=== PATIENT | female | born 1945 | race Caucasian/White ===

== ENCOUNTER → 2017-02-28 | Outpatient (CLI) | payer MEDICARE, BC ==
[2017-02-28 15:04] LABS: Blood Urea Nitrogen 20 mg/dL (7-17)
--- NOTE | 2017-02-28 16:00 | CT ---
EXAMINATION TYPE: CT abdomen pelvis w con DATE OF EXAM: 02/28/2017 HISTORY: Patient complains of bulge to rectum area and things not passing through normally. CT DLP: 523.60mGycm Automated Exposure Control for Dose Reduction was Utilized. CONTRAST: CT scan of the abdomen and pelvis is performed with IV Contrast, patient injected with 100 mL of Omni paque 300. COMPARISON: None. FINDINGS: LUNG BASES: No significant abnormality is appreciated. LIVER/GB: Cholecystectomy clips are present. PANCREAS: There is some fat replaced atrophy of the pancreas. SPLEEN: No significant abnormality is seen. ADRENALS: No significant abnormality is seen. KIDNEYS: There is symmetric cortical medullary uptake and excretion. BOWEL: The oral contrast reaches level of the proximal ileal bowel loops. There is contrast slightly dilated stomach. There is no suspicious small or large bowel dilatation. Moderate fecal material is f airly prominent throughout the colon. UTERUS/ADNEXA: Uterus is surgically absent or markedly atrophic. Former is favored. There are some sc attered left-sided pelvic phleboliths. LYMPH NODES: No greater than 1cm abdominal or pelvic lymph nodes are appreciated. OSSEOUS STRUCTURES: There is levoconvex scoliosis centered mid to lower lumbar spine. There is modera te to advanced disc space narrowing with vacuum disc phenomenon and endplate sclerosis left L2-L3 and right L4-L5 levels. There is facet arthropathy mid to lower lumbar levels. OTHER: Coils ventral wall hernia repair surgery overlying lower anterior abdominal wall. Some displac ed clips into pelvis are noted. IMPRESSION: No suspicious mass or finding is seen to account for patient's symptoms. No significant c olonic diverticulosis or CT evidence for acute diverticulitis. Overall nonobstructive bowel gas patte rn. Mild diffuse colonic fecal stasis or constipation is felt present. Dynamic CT or MRI can be perfo rmed to assess for prolapse if this is clinical concern.
== END | disposition home or self-care (01) ==
LOC: RADCTMAIN 13:54
PROVIDERS: ATTEND Surgery Plastic and Reconstructive Surgery
DX: K57.92 Diverticulitis of intestine, part unspecified, without perforation or abscess without bleeding (principal)
CPT/HCPCS: 82565; 84520; 74177; 36415; Q9967

== ENCOUNTER → 2017-03-05 | Day surgery (SDC) | payer MEDICARE, BC ==
[2017-03-03 16:18] VITALS: BMI 25.4
[~2017-03-05] MED LIST: LACTATED RINGERS 1,000 ML IV SCH; LIDOCAINE 1% 20 ML VIAL (10MG/ML) FOR IV START INTRADERMA ONE; LIDOCAINE 1% INJ 10MG/ML (20 ML MDV) ONE; PROPOFOL 10 MG/ML 20 ML VIAL IV ONE
[2017-03-05 10:27] VITALS: TEMP 98.1
--- NOTE | 2017-03-05 10:43 | P.GSHP ---
History of Present Illness H&P Date: 03/05/17 CHIEF COMPLAINT: GERD and colon screen HISTORY OF PRESENT ILLNESS: The patient is a 71-year-old female who presents with gastroesophageal reflux disease and need for colon screen. Upper and lower endoscopy were offered for further evaluation and management. PAST MEDICAL HISTORY: Please see list. PAST SURGICAL HISTORY: Please see list. MEDICATIONS: Please see list. ALLERGIES: Please see list. SOCIAL HISTORY: No illicit drug use FAMILY HISTORY: No reports of Crohn disease or ulcerative colitis. REVIEW OF ORGAN SYSTEMS: CONSTITUTIONAL: No reports of fevers or chills. GI: Denies any blood in stools or constipation. PHYSICAL EXAM: VITAL SIGNS: Stable GENERAL: Well-developed pleasant in no acute distress. HEENT: No scleral icterus. Extraocular movements grossly intact. Moist buccal mucosa. NECK: Supple without lymphadenopathy. CHEST: Unlabored respirations. Equal bilateral excursions. CARDIOVASCULAR: Regular rate and rhythm. Distal 2+ pulses. ABDOMEN: Soft, nondistended. MUSCULOSKELETAL: No clubbing, cyanosis, or edema. ASSESSMENT: 1. Gastroesophageal reflux disease 2. Colon screen. PLAN: 1. Recommend proceeding with an upper and lower endoscopy Past Medical History Past Medical History: Chest Pain / Angina, CVA/TIA, GERD/Reflux, Hyperlipidemia , Myocardial Infarction ([place]), Neurologic Disorder, Thyroid Disorder Additional Past Medical History / Comment(s): raynauds, fibromyalgia, "b/p runs low", pain-cervical area and lower back, ? CVA -had blood clot to eye (in her 30's) which resolved., Hiatal hernia., Hypothyroid,. ADRENAL FATIGUE., Having difficulty passing stool. Last Myocardial Infarction Date:: 11/2013 History of Any Multi-Drug Resistant Organisms: None Reported Past Surgical History: Cholecystectomy, Heart Catheterization With Stent, Hysterectomy Additional Past Surgical History / Comment(s): CYSTOCELE, CATARACTS, GROWTH ON HAND, GODFREY CARPAL TUNNEL, GODFREY ROTATOR CUFF., THUMB SURGERY. Past Anesthesia/Blood Transfusion Reactions: Postoperative Nausea & Vomiting ( PONV) Additional Past Anesthesia/Blood Transfusion Reaction / Comment(s): PONV X1 Date of Last Stent Placement:: 11/2013 Past Psychological History: No Psychological Hx Reported Smoking Status: Never smoker Past Alcohol Use History: None Reported Past Drug Use History: None Reported - Past Family History Mother Family Medical History: CVA/TIA Medications and Allergies Home Medications Medication Instructions Recorded Confirmed Type Adrenogen 30 mg PO BID 01/12/15 03/05/17 History Clopidogrel [Plavix] 75 mg PO DAILY 01/12/15 03/05/17 History [place]-3 Fatty Acids/Fish Oil [Fish 1,000 mg PO DAILY 01/12/15 03/05/17 History Oil 1,000 mg Softgel] Pregnenolone 50 mg PO DAILY 01/12/15 03/05/17 History Ranitidine HCl [Zantac] 150 mg PO DAILY PRN 01/12/15 03/05/17 History Acetaminophen [Tylenol Arthritis] 650 mg PO HS PRN 03/03/17 03/05/17 History Cbd Oil (Cannibus) 1 applicate TOPICAL DAILY PRN 03/03/17 03/05/17 History Cholecalciferol [Vitamin D3] 5,000 unit PO DAILY 03/03/17 03/05/17 History DULoxetine HCL [Cymbalta] 30 mg PO BID 03/03/17 03/05/17 History Essential Oils Tablet 1 tab PO DAILY 03/03/17 03/05/17 History Estradiol Cream [Estrace Cream 1 gm VAGINAL Q3D 03/03/17 03/05/17 History 0.01%] Estradiol [Estradiol 0.1 MG Patch] 1 patch TRANSDERM Q14D 03/03/17 03/05/17 History Magnesium 300 mg PO TID 03/03/17 03/05/17 History Progesterone, Micronized 120 mg PO DAILY 03/03/17 03/05/17 History [Progesterone] Thyroid,Pork [[place] Thyroid] 90 mg PO DAILY 03/03/17 03/05/17 History Vitamin B-12 Injection 1 dose SQ DIRECTED 03/03/17 03/05/17 History Allergies Allergy/AdvReac Type Severity Reaction Status Date / Time adhesive AdvReac skin Verified 03/05/17 10:05 irritation Surgical - Exam Vital Signs Temp Pulse Resp BP Pulse Ox 98.1 F 65 16 124/66 97 03/05/17 10:26 03/05/17 10:26 03/05/17 10:26 03/05/17 10:26 03/05/17 10:26
--- NOTE | 2017-03-05 11:15 | P.PCN ---
Date of Procedure: 03/05/17 Description of Procedure: VPREOPERATIVE DIAGNOSIS: Gastroesophageal reflux disease. Epigastric abdominal pain. POSTOPERATIVE DIAGNOSIS: Gastroesophageal reflux disease. Epigastric abdominal pain. Gastric ulcer distal to GE junction. OPERATION: Esophagogastroduodenoscopy with cold forceps biopsies along distal to GE junction SURGEON: Rochelle Cruz MD ANESTHESIA: MAC. INDICATIONS: The patient is a 71-year-old female who presents with a history of reflux disease. Benefits and risks of the procedure were described. Informed consent was obtained. DESCRIPTION: The patient was brought into the endoscopy suite and laid in the left lateral decubitus position. An Olympus gastroscope was passed along the posterior oropharynx down to the distal esophagus where the squamocolumnar junction was encountered at 35 cm from the incisors. The stomach was entered and no bile reflux was found. Additional findings are listed below. The first through third portion of the duodenum was examined and unremarkable. Retroflexion of the scope confirmed Hill grade 3 lower esophageal valve. Erosive ulcers were identified distal to GE junction and biopsied. The squamocolumnar junction demostrated early LA grade A erosive esophagitis. The stomach was desufflated. The patient tolerated the procedure well. FINDINGS: Squamocolumnar junction 35 cm from the incisors. Diaphragmatic hiatus at 35 cm. Hill grade 3 lower esophageal valve. LA grade A erosive esophagitis. No active duodenitis. Gastric ulcers distal to GE junction. RECOMMENDATIONS: Further recommendations pending results of pathology report. Upper endoscopy as needed.
--- NOTE | 2017-03-05 11:34 | P.PCN ---
Date of Procedure: 03/05/17 Description of Procedure: PREOPERATIVE DIAGNOSIS: Colonoscopy screening. POSTOPERATIVE DIAGNOSIS: Colonoscopy screening. External hemorrhoids. OPERATION: Colonoscopy to the sigmoid colon. SURGEON: Rochelle Cruz MD. ANESTHESIA: MAC. INDICATIONS: The patient is a 71-year-old female who presents for colonoscopy screening. Her last colonoscopy was more than 5 years ago. Benefits and risks were described and informed consent was obtained. DESCRIPTION OF PROCEDURE: The patient had undergone Gatorade, MiraLAX and Dulcolax prep. She had been brought into the operating room and laid in the left lateral decubitus position. After adequate intravenous sedation, the rectum was examined with 2% lidocaine jelly. External hemorrhoids were encountered. The rectal tone was loose. No lesions were palpated in the rectal vault. An Olympus colonoscope was advanced along the rectum to a very tortuous sigmoid colon. The scope was then exchanged for a pediatric colonoscope. Despite multiple maneuvers, the sigmoid colon had severe tortuosity preventing further advancement of scope. The scope was passed to 30 cm from the anal verge. No evidence of polyps were identified. As the patient posed high risk for perforation with persistence of the procedure, the procedure was discontinued. The colon was desufflated. The patient had tolerated the procedure well. Withdrawal time was over 6 minutes. FINDINGS: Tortuous sigmoid colon with stricture preventing further advancement of the scope. External prolapsed hemorrhoids. Scope advanced to sigmoid colon at 30 cm. No arteriovenous malformations. No adenomatous polyps. No focal colitis. RECOMMENDATIONS: Completion of colonoscopy evaluation with barium enema. Plan - Discharge Summary New Discharge Prescriptions: No [place]-3 Fatty Acids/Fish Oil [Fish Oil 1,000 mg Softgel] 1,000 mg PO DAILY Ranitidine HCl [Zantac] 150 mg PO DAILY PRN PRN Reason: Heartburn Clopidogrel [Plavix] 75 mg PO DAILY Pregnenolone 50 mg PO DAILY Adrenogen 30 mg PO BID Progesterone, Micronized [Progesterone] 120 mg PO DAILY Thyroid,Pork [[place] Thyroid] 90 mg PO DAILY Magnesium 300 mg PO TID DULoxetine HCL [Cymbalta] 30 mg PO BID Estradiol Cream [Estrace Cream 0.01%] 1 gm VAGINAL Q3D Estradiol [Estradiol 0.1 MG Patch] 1 patch TRANSDERM Q14D Acetaminophen [Tylenol Arthritis] 650 mg PO HS PRN PRN Reason: Pain Cholecalciferol [Vitamin D3] 5,000 unit PO DAILY Vitamin B-12 Injection 1 dose SQ DIRECTED Essential Oils Tablet 1 tab PO DAILY Cbd Oil (Cannibus) 1 applicate TOPICAL DAILY PRN PRN Reason: Pain Discharge Medication List Adrenogen 30 mg PO BID 01/12/15 [History] Clopidogrel [Plavix] 75 mg PO DAILY 01/12/15 [History] [place]-3 Fatty Acids/Fish Oil [Fish Oil 1,000 mg Softgel] 1,000 mg PO DAILY 01/12 [History] Pregnenolone 50 mg PO DAILY 01/12/15 [History] Ranitidine HCl [Zantac] 150 mg PO DAILY PRN 01/12/15 [History] Acetaminophen [Tylenol Arthritis] 650 mg PO HS PRN 03/03/17 [History] Cbd Oil (Cannibus) 1 applicate TOPICAL DAILY PRN 03/03/17 [History] Cholecalciferol [Vitamin D3] 5,000 unit PO DAILY 03/03/17 [History] DULoxetine HCL [Cymbalta] 30 mg PO BID 03/03/17 [History] Essential Oils Tablet 1 tab PO DAILY 03/03/17 [History] Estradiol Cream [Estrace Cream 0.01%] 1 gm VAGINAL Q3D 03/03/17 [History] Estradiol [Estradiol 0.1 MG Patch] 1 patch TRANSDERM Q14D 03/03/17 [History] Magnesium 300 mg PO TID 03/03/17 [History] Progesterone, Micronized [Progesterone] 120 mg PO DAILY 03/03/17 [History] Thyroid,Pork [[place] Thyroid] 90 mg PO DAILY 03/03/17 [History] Vitamin B-12 Injection 1 dose SQ DIRECTED 03/03/17 [History]
[2017-03-05 14:12] VITALS: BP 128/73; PULSE 66; RESP 18
--- NOTE | 2017-03-05 14:53 | FL ---
EXAMINATION TYPE: FL barium enema DATE OF EXAM: 03/05/2017 COMPARISON: CT abdomen and pelvis from 5 days ago. HISTORY: Failed colonoscopy. TECHNIQUE: A double contrast barium enema study is performed. A total of 2 minutes 35 seconds of flu oroscopic time was utilized during procedure. 10 spot images were obtained during procedure. 10 post procedure overhead images were acquired. FINDINGS: Nursing Support Worker view of the abdomen shows overall non-obstructive bowel gas pattern. Numerous surgic al clips from hysterectomy are seen overlying pelvis. Cholecystectomy clips are redemonstrated. Left- sided pelvic phleboliths are noted. There is successful opacification to the cecum. Evaluation for polyps is suboptimal due to marked red undancy of colon. No obvious distal polyps are seen. No suspicious constricting or obstructing mass i s identified. There are a few left-sided and transverse colonic diverticula. There is no CT evidence for acute diverticulitis. Appendix was not filled and noted surgically absent by patient. The terminal ileum was refluxed and appears within normal limits. IMPRESSION: Successful filling to cecum without obstructing or constricting mass identified.
== END | disposition home or self-care (01) ==
LOC: ORWHC2ENDO 09:03
PROVIDERS: ATTEND Surgery Plastic and Reconstructive Surgery
DX: Z12.11 Encounter for screening for malignant neoplasm of colon (principal); K22.10 Ulcer of esophagus without bleeding; K29.50 Unspecified chronic gastritis without bleeding; K21.9 Gastro-esophageal reflux disease without esophagitis; K25.9 Gastric ulcer, unspecified as acute or chronic, without hemorrhage or perforation; Q43.8 Other specified congenital malformations of intestine; K64.8 Other hemorrhoids; Z95.5 Presence of coronary angioplasty implant and graft; I25.10 Atherosclerotic heart disease of native coronary artery without angina pectoris; Z86.73 Personal history of transient ischemic attack (TIA), and cerebral infarction without residual deficits; E78.5 Hyperlipidemia, unspecified; I25.2 Old myocardial infarction; E03.9 Hypothyroidism, unspecified; Z79.02 Long term (current) use of antithrombotics/antiplatelets; Z79.890 Hormone replacement therapy; Z79.899 Other long term (current) drug therapy; Z91.09 Other allergy status, other than to drugs and biological substances
CPT/HCPCS: 88305; 88342; 74270; 43239; 45330; J2001; J2704; 45378

== ENCOUNTER 2017-07-16 14:17 | Emergency (ER) | payer MEDICARE, BC ==
[2017-07-16] MEDS ORDERED: SODIUM CHLORIDE 0.9% 1,000 ML IV STA (14:47)
[2017-07-16] MEDS ORDERED: DICYCLOMINE 20 MG TAB PO STA (15:01)
--- NOTE | 2017-07-16 15:22 | ED ---
Nausea/Vomiting/Diarrhea HPI - General Chief complaint: Nausea/Vomiting/Diarrhea Stated complaint: diarrhea Time Seen by Provider: 07/16/17 14:47 Source: patient, RN notes reviewed Mode of arrival: ambulatory Limitations: no limitations - History of Present Illness Initial comments: 72-year-old female presents from chief complaint of diarrhea. Patient states symptoms started around 3:30 yesterday. Patient states that it is all water at this point. She denies any melena or rectal bleeding. Patient states that she does have some abdominal cramping and a large amount of gas. She denies any nausea vomiting, shortness breath, chest pain, fever, chills, headache or dizziness. Patient has no recent antibiotic use no history of colitis or C. diff. Patient states that she does have known diverticulosis. - Related Data Home Medications Medication Instructions Recorded Confirmed Adrenogen 30 mg PO BID 01/12/15 07/16/17 Clopidogrel [Plavix] 75 mg PO DAILY 01/12/15 07/16/17 [place]-3 Fatty Acids/Fish Oil [Fish 1,000 mg PO DAILY 01/12/15 07/16/17 Oil 1,000 mg Softgel] Pregnenolone 50 mg PO DAILY 01/12/15 07/16/17 Ranitidine HCl [Zantac] 150 mg PO DAILY PRN 01/12/15 07/16/17 Cholecalciferol [Vitamin D3] 5,000 unit PO DAILY 03/03/17 07/16/17 DULoxetine HCL [Cymbalta] 30 mg PO BID 03/03/17 07/16/17 Estradiol Cream [Estrace Cream 1 gm VAGINAL SUWE 03/03/17 07/16/17 0.01%] Estradiol [Estradiol 0.1 MG Patch] 1 patch TRANSDERM SUWE 03/03/17 07/16/17 Magnesium 200 mg PO TID 03/03/17 07/16/17 Progesterone, Micronized 100 mg PO DAILY 03/03/17 07/16/17 [Progesterone] Thyroid,Pork [[place] Thyroid] 90 mg PO DAILY 03/03/17 07/16/17 Cyanocobalamin [Vitamin B-12 500 mcg SQ SUTUFR 07/16/17 07/16/17 Injection] Metaxalone 800 mg PO DAILY PRN 07/16/17 07/16/17 Trieaseseas 1 tab PO DAILY 07/16/17 07/16/17 Ubidecarenone [Co Q-10] 100 mg PO DAILY 07/16/17 07/16/17 Previous Rx's Medication Instructions Recorded Dicyclomine [Bentyl] 20 mg PO TID #30 tablet 07/16/17 Allergies Allergy/AdvReac Type Severity Reaction Status Date / Time adhesive AdvReac skin Verified 07/16/17 15:15 irritation Review of Systems ROS Statement: Those systems with pertinent positive or pertinent negative responses have been documented in the HPI. ROS Other: All systems not noted in ROS Statement are negative. Past Medical History Past Medical History: Chest Pain / Angina, CVA/TIA, GERD/Reflux, Hyperlipidemia , Myocardial Infarction ([place]), Neurologic Disorder, Thyroid Disorder Additional Past Medical History / Comment(s): raynauds, fibromyalgia, "b/p runs low", pain-cervical area and lower back, ? CVA -had blood clot to eye (in her 30's) which resolved., Hiatal hernia., Hypothyroid,. ADRENAL FATIGUE Last Myocardial Infarction Date:: 11/2013 History of Any Multi-Drug Resistant Organisms: None Reported Past Surgical History: Cholecystectomy, Heart Catheterization With Stent, Hysterectomy Additional Past Surgical History / Comment(s): CYSTOCELE, CATARACTS, GROWTH ON HAND, GODFREY CARPAL TUNNEL, GODFREY ROTATOR CUFF., THUMB SURGERY. Past Anesthesia/Blood Transfusion Reactions: Postoperative Nausea & Vomiting ( PONV) Additional Past Anesthesia/Blood Transfusion Reaction / Comment(s): PONV X1 Date of Last Stent Placement:: 11/2013 Past Psychological History: No Psychological Hx Reported Smoking Status: Never smoker Past Alcohol Use History: None Reported Past Drug Use History: None Reported - Past Family History Mother Family Medical History: CVA/TIA General Exam Limitations: no limitations General appearance: alert, in no apparent distress Head exam: Present: atraumatic, normocephalic, normal inspection Respiratory exam: Present: normal lung sounds bilaterally. Absent: respiratory distress, wheezes, rales, rhonchi, stridor Cardiovascular Exam: Present: regular rate, normal rhythm, normal heart sounds. Absent: systolic murmur, diastolic murmur, rubs, gallop, clicks GI/Abdominal exam: Present: soft, hyperactive bowel sounds. Absent: distended, tenderness, guarding, rebound, rigid Back exam: Absent: CVA tenderness (R), CVA tenderness (L) Skin exam: Present: warm, dry, intact, normal color. Absent: rash Course Vital Signs 07/16/17 07/16/17 07/16/17 14:23 15:29 16:29 Temperature 97.0 F L Pulse Rate 72 63 61 Respiratory 18 18 18 Rate Blood Pressure 129/60 142/67 145/108 O2 Sat by Pulse 99 99 99 Oximetry 07/16/17 17:38 Temperature Pulse Rate 76 Respiratory 16 Rate Blood Pressure 135/64 O2 Sat by Pulse 100 Oximetry Medical Decision Making - Medical Decision Making 72-year-old female presented to the ER for diarrhea. Patient's symptoms have been only present for 24 hours. Patient was hydrated, is labwork and C. diff testing was performed. She is negative C. diff. This most likely is viral diarrhea. She'll be discharged with Bentyl advised to increase her fluid intake and follow-up with her PCP. Stool culture was obtained. - Lab Data Result diagrams: 07/16/17 15:08 07/16/17 15:08 Lab Results 07/16/17 07/16/17 07/16/17 Range/Units 15:08 15:08 16:30 WBC 4.4 (3.8-10.6) k/uL RBC 4.54 (3.80-5.40) m/uL Hgb 13.7 (11.4-16.0) gm/dL Hct 40.9 (34.0-46.0) % MCV 90.1 (80.0-100.0) fL MCH 30.2 (25.0-35.0) pg MCHC 33.5 (31.0-37.0) g/dL RDW 13.0 (11.5-15.5) % Plt Count 207 (150-450) k/uL Neutrophils % 75 % Lymphocytes % 11 % Monocytes % 10 % Eosinophils % 1 % Basophils % 0 % Neutrophils # 3.3 (1.3-7.7) k/uL Lymphocytes # 0.5 L (1.0-4.8) k/uL Monocytes # 0.4 (0-1.0) k/uL Eosinophils # 0.0 (0-0.7) k/uL Basophils # 0.0 (0-0.2) k/uL Sodium 137 (137-145) mmol/L Potassium 4.1 (3.5-5.1) mmol/L Chloride 103 (98-107) mmol/L Carbon Dioxide 20 L (22-30) mmol/L Anion Gap 14 mmol/L BUN 24 H (7-17) mg/dL Creatinine 0.67 (0.52-1.04) mg/dL Est GFR (CKD-EPI)AfAm >90 (>60 ml/min/1.73 sqM) Est GFR (CKD-EPI)NonAf 87 (>60 ml/min/1.73 sqM) Glucose 83 (74-99) mg/dL Calcium 8.2 L (8.4-10.2) mg/dL Total Bilirubin 0.4 (0.2-1.3) mg/dL AST 52 H (14-36) U/L ALT 57 H (9-52) U/L Alkaline Phosphatase 80 (38-126) U/L Total Protein 6.0 L (6.3-8.2) g/dL Albumin 3.8 (3.5-5.0) g/dL Amylase 50 (30-110) U/L Lipase 31 (23-300) U/L Urine Color Yellow Urine Appearance Clear (Clear) Urine pH 5.5 (5.0-8.0) Ur Specific [place] 1.020 (1.001-1.035) Urine Protein Trace H (Negative) Urine Glucose (UA) Negative (Negative) Urine Ketones 2+ H (Negative) Urine Blood Negative (Negative) Urine Nitrite Negative (Negative) Urine Bilirubin Negative (Negative) Urine Urobilinogen <2.0 (<2.0) mg/dL Ur Leukocyte Esterase Negative (Negative) Disposition Clinical Impression: Diarrhea Disposition: HOME SELF-CARE Condition: Stable Instructions: Acute Diarrhea (ED) Additional Instructions: Please return to the Emergency Department if symptoms worsen or any other concerns. Prescriptions: Dicyclomine [Bentyl] 20 mg PO TID #30 tablet Is patient prescribed a controlled substance at d/c from ED?: No Referrals: Flavia Lawson MD [Primary Care Provider] - 1-2 days Time of Disposition: 18:36
[2017-07-16 15:25] LABS: Basophils % (A) 0 %; Eosinophils % (A) 1 %; HCT 40.9 % (34.0-46.0); HGB 13.7 gm/dL (11.4-16.0); Lymphocytes # (A) 0.5 k/uL (1.0-4.8); Lymphocytes % (A) 11 %; MCH 30.2 pg (25.0-35.0); MCHC 33.5 g/dL (31.0-37.0); MCV 90.1 fL (80.0-100.0); Mean Platelet Volume 7.1; Monocytes # (A) 0.4 k/uL (0-1.0); Monocytes % (A) 10 %; Neutrophils # (A) 3.3 k/uL (1.3-7.7); Neutrophils % (A) 75 %; Platelet Count 207 k/uL (150-450); RBC 4.54 m/uL (3.80-5.40); WBC 4.4 k/uL (3.8-10.6)
[2017-07-16 15:27] LABS: ALT 57 U/L (9-52); AST 52 U/L (14-36); Albumin 3.8 g/dL (3.5-5.0); Alkaline Phosphatase 80 U/L (38-126); Amylase 50 U/L (30-110); Anion Gap 14 mmol/L; Blood Urea Nitrogen 24 mg/dL (7-17); Calcium 8.2 mg/dL (8.4-10.2); Carbon Dioxide 20 mmol/L (22-30); Chloride 103 mmol/L (98-107); Glucose 83 mg/dL (74-99); Lipase 31 U/L (23-300); Potassium 4.1 mmol/L (3.5-5.1); Sodium 137 mmol/L (137-145); Total Bilirubin 0.4 mg/dL (0.2-1.3)
[2017-07-16] MEDS ORDERED: FAMOTIDINE 20 MG/2 ML VIAL IV STA (16:17)
[2017-07-16 16:37] LABS: Appearance,Urine Clear (Clear); Bilirubin,Urine Negative (Negative); Blood,Urine Negative (Negative); Color,Urine Yellow; Glucose,Urine (UA) Negative (Negative); Ketones,Urine 2+ (Negative); Leukocyte Esterase,Urine Negative (Negative); Nitrite,Urine Negative (Negative); PH, Urine 5.5 (5.0-8.0); Protein,Urine Trace (Negative); Urobilinogen,Urine <2.0 mg/dL (<2.0)
[2017-07-16] MEDS ORDERED: SODIUM CHLORIDE 0.9% 1,000 ML IV ONE (17:41)
[2017-07-16] MEDS ORDERED: DIPHENOX-ATROP 2.5-0.025 MG 1 EACH TAB PO STA (18:35)
[2017-07-16] MEDS ORDERED: DIPHENOX-ATROP STARTER PACK 8 TAB BTL PO STA (18:35)
[2017-07-16 19:09] VITALS: BP 132/60; PULSE 66; RESP 18; TEMP 98.3
== END 2017-07-16 19:19 | disposition home or self-care (01) ==
LOC: EC 14:17
DX: R19.7 Diarrhea, unspecified (principal); R10.9 Unspecified abdominal pain; R14.0 Abdominal distension (gaseous); E03.9 Hypothyroidism, unspecified; K21.9 Gastro-esophageal reflux disease without esophagitis; I25.2 Old myocardial infarction; M79.7 Fibromyalgia; Z86.73 Personal history of transient ischemic attack (TIA), and cerebral infarction without residual deficits; Z95.5 Presence of coronary angioplasty implant and graft; Z90.49 Acquired absence of other specified parts of digestive tract; Z79.890 Hormone replacement therapy; Z79.02 Long term (current) use of antithrombotics/antiplatelets; Z79.810 Long term (current) use of selective estrogen receptor modulators (SERMs); Z79.899 Other long term (current) drug therapy; Z91.048 Other nonmedicinal substance allergy status
CPT/HCPCS: 36415; 80053; 81003; 82150; 83690; 85025; 87045; 87046; 87324; 96361; 96374; 99284

== ENCOUNTER → 2017-10-06 | Outpatient (CLI) | payer MEDICARE, BC ==
[2017-10-06 14:00] LABS: HCT 38.9 % (34.0-46.0); HGB 12.7 gm/dL (11.4-16.0); MCH 30.2 pg (25.0-35.0); MCHC 32.7 g/dL (31.0-37.0); MCV 92.3 fL (80.0-100.0); Mean Platelet Volume 7.1; Platelet Count 215 k/uL (150-450); RBC 4.21 m/uL (3.80-5.40); RDW 12.8 % (11.5-15.5); WBC 6.2 k/uL (3.8-10.6)
[2017-10-06 14:22] LABS: ALT 31 U/L (9-52); AST 27 U/L (14-36); Alkaline Phosphatase 57 U/L (38-126); Anion Gap 6 mmol/L; Blood Urea Nitrogen 20 mg/dL (7-17); Calcium 9.1 mg/dL (8.4-10.2); Carbon Dioxide 27 mmol/L (22-30); Chloride 107 mmol/L (98-107); Glucose 94 mg/dL (74-99); Potassium 4.4 mmol/L (3.5-5.1); Sodium 140 mmol/L (137-145); Total Bilirubin 0.2 mg/dL (0.2-1.3); Total Protein 6.4 g/dL (6.3-8.2)
== END | disposition home or self-care (01) ==
LOC: LABWHC1 13:05
PROVIDERS: ATTEND Surgery Plastic and Reconstructive Surgery
DX: K56.2 Volvulus (principal)
CPT/HCPCS: 36415; 80053; 85027

== ENCOUNTER 2017-10-10 10:43 | Inpatient (IN) | payer MEDICARE, BC ==
[2017-09-26 13:47] VITALS: BMI 25.4
--- NOTE | 2017-10-09 20:23 | P.GSHP ---
History of Present Illness H&P Date: 10/10/17 CHIEF COMPLAINT: History of sigmoid volvulus HISTORY OF PRESENT ILLNESS: The patient is a 72-year-old female with long- standing history of chronic constipation including large bowel obstruction secondary to sigmoid volvulus. She completed a colonoscopy which excluded underlying neoplasm. Now she presents for sigmoid colon resection. PAST MEDICAL HISTORY: Please see list. PAST SURGICAL HISTORY: Please see list. MEDICATIONS: Please see list. ALLERGIES: Please see list. SOCIAL HISTORY: No illicit drug use FAMILY HISTORY: No reports of Crohn disease or ulcerative colitis. REVIEW OF ORGAN SYSTEMS: Additionally reports: Gastrointestinal: Change in bowel habits including diarrhea and constipation. Has GERD. CONSTITUTIONAL: No fevers or chills. HEENT: Denies any trouble with vision, hearing or nosebleeds. No difficulty swallowing. LYMPHATIC: The patient denies any lumps and bumps around the neck. ENDOCRINE: Has thyroid disorders. Denies any blood sugar glucose intolerance. RESPIRATORY: Denies pneumonia. Denies any troubles with breathing or dyspnea on exertion. CARDIOVASCULAR: Denies any chest pain, palpitations, or recent heart attacks. GENITOURINARY: Denies any blood in urine or increased urinary frequency. MUSCULOSKELETAL: Denies any back pain, stiffness or joint arthritis. NEUROLOGIC: Denies any numbness or tingling along the distal extremities. No seizure disorders or headaches. PSYCHIATRIC: Has depression. No suicidal ideation. HEMATOLOGIC: Denies any abnormal bleeding or bruising. BREASTS: Denies any breast lumps, pain or nipple discharge. SKIN: No current skin cancer. No rash. PHYSICAL EXAM: VITAL SIGNS: Stable Patient is a 72-year-old female. Abdomen: Well healed Pfannenstiel incision from previous C-sections. Also, well healed stab incision from previous cholecystectomy. GENERAL: Well developed and in no acute distress. Pleasant. HEENT: No sclera icterus. Extraocular movements grossly intact. Moist buccal mucosa. Head is atraumatic, normocephalic. Hears conversational speech. No nasal drainage. NECK: Supple without lymphadenopathy. No JV distention. CHEST: Non-labored respirations and equal bilateral excursions. CARDIOVASCULAR: Regular rate and rhythm. Palpable 2+ radial pulses. MUSCULOSKELETAL: No clubbing, cyanosis or edema. NEUROLOGIC: No focal or lateralizing signs. PSYCH: Appropriate affect. Alert and oriented to person, place and time. SKIN: Well perfused. Good skin turgor. STUDIES: CT of the abdomen and pelvis was reviewed demonstrating moderate stool burden. Barium enema also reviewed with her in detail with images demonstrating moderate redundant sigmoid colon with an obstruction, also with moderate redundant transverse colon extending to the pelvis. Stool studies were reviewed in detail and negative for C. diff including salmonella shigella. ASSESSMENT: 1. History of previous large bowel obstruction. 2. Sigmoid volvulus. PLAN: 1. Benefits and risks of surgical intervention particular sigmoid volvulus reviewed in detail. Robotic-assisted approach was also described. 2. She has completed an enhanced colon recovery program. 3. DVT prophylaxis. 4. Antibiotic prophylaxis. Past Medical History Past Medical History: Chest Pain / Angina, CVA/TIA, GERD/Reflux, Hyperlipidemia , Myocardial Infarction ([place]), Neurologic Disorder, Thyroid Disorder Additional Past Medical History / Comment(s): freq constipation,diarrhea and pain r/t diverticulitis,raynauds, fibromyalgia, "b/p runs low", pain-cervical area and lower back, ? CVA -had blood clot to eye (in her 30's) which resolved. , Hiatal hernia., Hypothyroid,. ADRENAL FATIGUE Last Myocardial Infarction Date:: 11/2013 History of Any Multi-Drug Resistant Organisms: None Reported Past Surgical History: Cholecystectomy, Heart Catheterization With Stent, Hysterectomy Additional Past Surgical History / Comment(s): CYSTOCELE, CATARACTS, GROWTH ON HAND, GODFREY CARPAL TUNNEL, GODFREY ROTATOR CUFF., THUMB SURGERY. Past Anesthesia/Blood Transfusion Reactions: Postoperative Nausea & Vomiting ( PONV) Additional Past Anesthesia/Blood Transfusion Reaction / Comment(s): PONV X1,no hx blood transfusion Date of Last Stent Placement:: 11/2013 Smoking Status: Never smoker - Past Family History Brother(s) Additional Family Medical History / Comment(s): pacemaker Mother Family Medical History: CVA/TIA Medications and Allergies Home Medications Medication Instructions Recorded Confirmed Type Adrenogen 30 mg PO BID 01/12/15 09/26/17 History Clopidogrel [Plavix] 75 mg PO DAILY 01/12/15 09/26/17 History [place]-3 Fatty Acids/Fish Oil [Fish 1,000 mg PO DAILY 01/12/15 09/26/17 History Oil 1,000 mg Softgel] Pregnenolone 50 mg PO DAILY 01/12/15 09/26/17 History Ranitidine HCl [Zantac] 150 mg PO DAILY PRN 01/12/15 09/26/17 History Cholecalciferol [Vitamin D3] 5,000 unit PO DAILY 03/03/17 09/26/17 History DULoxetine HCL [Cymbalta] 30 mg PO BID 03/03/17 09/26/17 History Estradiol Cream [Estrace Cream 1 gm VAGINAL SUWE 03/03/17 09/26/17 History 0.01%] Estradiol [Estradiol 0.1 MG Patch] 1 patch TRANSDERM SUWE 03/03/17 09/26/17 History Magnesium 200 mg PO TID 03/03/17 09/26/17 History Progesterone, Micronized 100 mg PO QAM 03/03/17 09/26/17 History [Progesterone] Thyroid,Pork [[place] Thyroid] 120 mg PO QAM 03/03/17 09/26/17 History Cyanocobalamin [Vitamin B-12 500 mcg SQ SUTUFR 07/16/17 09/26/17 History Injection] Dicyclomine [Bentyl] 20 mg PO TID #30 tablet 07/16/17 09/26/17 Rx Metaxalone 800 mg PO DAILY PRN 07/16/17 09/26/17 History Acetaminophen [Tylenol Arthritis] 650 mg PO HS 09/26/17 09/26/17 History Allergies Allergy/AdvReac Type Severity Reaction Status Date / Time adhesive AdvReac skin Verified 09/26/17 13:34 irritation
[~2017-10-10 10:43] MED LIST changes: +ACETAMINOPHEN TAB 500 MG TAB PO ONE; +ALVIMOPAN 12 MG CAPSULE PO ONE; +Antibiotics per Pharmacy 1 EACH MISC MISCELLANE PRN; +HEPARIN SODIUM,PORCINE 5,000 UNIT/ML 1 ML VIAL SQ ONE; -LACTATED RINGERS 1,000 ML IV SCH; -LIDOCAINE 1% 20 ML VIAL (10MG/ML) FOR IV START INTRADERMA ONE; +LIDOCAINE 1% 20 ML VIAL (10MG/ML) FOR IV START INTRADERMA PRN; -LIDOCAINE 1% INJ 10MG/ML (20 ML MDV) ONE; -PROPOFOL 10 MG/ML 20 ML VIAL IV ONE; +ceFAZolin IN SWFI 2 GM/20 ML SYRINGE IVP ONE; +metroNIDAZOLE-NS PMX 500 MG in SALINE 1 100ML.BAG IVPB ONE
[2017-10-10 12:02] LABS: Basophils % (A) 1 %; Eosinophils # (A) 0.2 k/uL (0-0.7); Eosinophils % (A) 3 %; HCT 38.6 % (34.0-46.0); HGB 12.8 gm/dL (11.4-16.0); Lymphocytes # (A) 1.3 k/uL (1.0-4.8); Lymphocytes % (A) 23 %; MCH 30.4 pg (25.0-35.0); MCHC 33.2 g/dL (31.0-37.0); MCV 91.4 fL (80.0-100.0); Mean Platelet Volume 6.8; Monocytes # (A) 0.5 k/uL (0-1.0); Monocytes % (A) 8 %; Neutrophils # (A) 3.6 k/uL (1.3-7.7); Neutrophils % (A) 63 %; Platelet Count 217 k/uL (150-450); RBC 4.22 m/uL (3.80-5.40); WBC 5.7 k/uL (3.8-10.6)
[2017-10-10] MEDS: LACTATED RINGERS 1,000 ML IV SCH (12:03)
[2017-10-10] MEDS: ONDANSETRON 4 MG/2 ML VIAL IVP ONE ×2 (12:05→17:32)
[2017-10-10 12:19] LABS: ALT 38 U/L (9-52); AST 27 U/L (14-36); Albumin 3.8 g/dL (3.5-5.0); Alkaline Phosphatase 49 U/L (38-126); Anion Gap 6 mmol/L; Blood Urea Nitrogen 13 mg/dL (7-17); Calcium 8.7 mg/dL (8.4-10.2); Carbon Dioxide 28 mmol/L (22-30); Chloride 107 mmol/L (98-107); Glucose 79 mg/dL (74-99); Potassium 3.8 mmol/L (3.5-5.1); Sodium 141 mmol/L (137-145); Total Bilirubin 0.4 mg/dL (0.2-1.3); Total Protein 6.2 g/dL (6.3-8.2)
[2017-10-10] MEDS ORDERED: LIDOCAINE 1% INJ 10MG/ML (20 ML MDV) ONE (12:31)
[2017-10-10] MEDS ORDERED: NEOSTIGMINE 1 MG/ML 10 ML VIAL ONE (12:31)
[2017-10-10] MEDS ORDERED: PROPOFOL 10 MG/ML 20 ML VIAL IV ONE (12:31)
[2017-10-10] MEDS ORDERED: GLYCOPYRROLATE 0.2 MG/ML 2 ML VIAL ONE (12:31)
[2017-10-10] MEDS ORDERED: fentaNYL (PF) 50 MCG/ML 2 ML AMP ONE (12:31)
[2017-10-10] MEDS ORDERED: ROCURONIUM BROMIDE 10 MG/ML 10 ML VIAL IV ONE (12:31)
[2017-10-10] MEDS ORDERED: MIDAZOLAM 2 MG/2 ML VIAL ONE (12:31)
[2017-10-10] MEDS ORDERED: SUCCINYLCHOLINE CHLORIDE 100 MG/5 ML SYR IV ONE (12:31)
[2017-10-10] MEDS ORDERED: BUPIVACAIN-EPI 0.5%-1:200,000 30 ML VIAL SQ ONE (13:17)
[2017-10-10] MEDS ORDERED: LACTATED RINGERS 1,000 ML IV ONE (16:25)
[2017-10-10] MEDS ORDERED: BENZOCAINE/MENTHOL LOZENG 1 EACH LOZENGE MUCOUS MEM PRN (16:43)
[2017-10-10] MEDS ORDERED: HYDROmorphone 1 MG/ML 1 ML SYRINGE IVP PRN (16:43)
[2017-10-10] MEDS ORDERED: ONDANSETRON 4 MG/2 ML VIAL IVP PRN (16:43)
[2017-10-10] MEDS ORDERED: METOCLOPRAMIDE 5 MG/ML 2 ML VIAL IVP PRN (16:43)
--- NOTE | 2017-10-10 17:04 | P.OP ---
Date of Procedure: 10/10/17 Description of Procedure: SURGEON: EDWIN MCCORMICK MD SEWER INSPECTOR: EUN DOWD PREOPERATIVE DIAGNOSES: 1. Sigmoid volvulus. 2. Ischemic cardiomyopathy 3. Hypertensive heart disease 4. Hypothyroidism 5. Depressive disorder 6. History of sigmoid colonic stricture 7. History of angina 8. Fibromyalgia 9. History of myocardial infarction 10. Gastroesophageal reflux disease POSTOPERATIVE DIAGNOSES: 1. Sigmoid volvulus. 2. Ischemic cardiomyopathy 3. Hypertensive heart disease 4. Hypothyroidism 5. Depressive disorder 6. History of sigmoid colonic stricture 7. History of angina 8. Fibromyalgia 9. History of myocardial infarction 10. Gastroesophageal reflux disease OPERATION: 1. Robotic-assisted daVinci Xi laparoscopic sigmoid colectomy, multi-port ANESTHESIA: General with local ESTIMATED BLOOD LOSS: 25 mL SPECIMENS REMOVED: sigmoid colon FINDINGS: 1. Severe scarring along the left pelvis from previous hysterectomy causing stricture and lead point for sigmoid volvulus 2. Linear intracorporeal isoperistaltic anastomosis colo-colon anastomosis using 45 mm blue staple load. 3. At least 6 staplers robotic used, 45 mm blue load. 4. Robotic arms using multiport, stapler along the right upper and left upper quadrant. 5. All ports place 15 to 20 cm away from target anatomy, the sigmoid colon. 6. Specimen extracted from the left upper quadrant port. 7. Anastomosis oversewn using 3-0 silk and 3-0 Vicryl INDICATIONS: The patient is a 72-year-old female who presents with history of sigmoid volvulus. She had a colonoscopy confirming a sigmoid stricture as well. Surgical options were described. Benefits and risks, including infection , possibility for additional surgery, including possible colostomy was discussed at length. Informed consent was obtained. DESCRIPTION: Earlier the patient had undergone a bowel prep using the enhanced colon recovery program. The patient was transferred to the operating room and placed supine. The patient was then intubated. A Vasquez catheter placed. The abdomen was then prepped and draped in standard sterile fashion. After a timeout protocol was performed, attention was then brought to the left upper quadrant whereby a 0 degree 5 mm laparoscopic trocar entry was performed. The abdominal cavity was entered and insufflated to 15 mmHg pressure, which she tolerated well. Diagnostic laparoscopy demonstrated an adhesion along the left pelvis. The sigmoid colon was moderately redundant. All 3 arms of the robot were used. Next a robotic 12-mm trocar was placed along the left lateral abdominal wall 15 cm proximal from the pelvis. A 8 mm port was placed along the right lateral abdominal wall followed by another robotic 12-mm port placed along the right upper quadrant. Ports were placed 8 cm apart from each other including 15 away from the target anatomy of the left pelvis. The 5-mm port was exchanged for an 8 mm robotic port. The stapler 12- mm port was placed along the right lateral and left lateral abdominal wall. The patient was then placed in Trendelenburg position, 16. The robotic da Valeria Xi system was primed. The robot was docked along the left-side of the patient. Using a grasper for arm 1, a grasper for arm 3, including vessel sealer for arm 4, the robotic system was docked and primed as described. Instruments were interchanged by the oral surgery assistant including scissors the cartridge, needle deliver driver, robotic stapler and vessel sealer. Next, attention was brought to identify the rectum. A lead point with severe scarring was identified with redundancy of the sigmoid colon along the left pelvis from her previous hysterectomy. Extensive lysis of adhesions over 2 hours using scissors with cautery including the vessel sealer was used to release the scar. A stay suture using 0 silk was placed along the anterior serosa of the descending colon including along the rectum. An active sigmoid volvulus was identified and rotated along its normal anatomical position along its mesentery. The volvulus was reduced. The sigmoid mesentery was mobilized using a vessel sealer whereby the distal sigmoid colon was marked and tagged. Using robot stapler 45 mm blue load, the distal redundant sigmoid colon was divided. The mesentery of the sigmoid colon was mobilized towards the descending colon using a vessel sealer. Next, the proximal sigmoid colon was divided using robotic stapler 45 mm blue load. The descending colon was similarly marked using 3-0 silk. The rest of the sigmoid colon mesentery was mobilized using vessel sealer. The proximal and distal colon was brought in an isoperistaltic fashion after placing interrupted sutures along the proposed danay-lumen using 3-0 silk. Along the tinea coli of the proximal including distal limbs, a colotomy was prepared along both limbs. Next, a 45 mm stapler was fired to create the danay-lumen. The colotomy of the danay-lumen was closed using 3-0 Vicryl and 3-0 silk. The robot was undocked. I re-scrubbed into the case. Via the 12 mm port of the left upper lateral trocar, the colon was removed after widening the incision. All sponges were removed from the abdominal cavity. Minimal contamination had occurred throughout the case. The 12-mm fascial defect of left upper quadrant was oversewn using 0 Vicryl and a Jasson Adames. Next all pneumoperitoneum was evacuated from the abdominal cavity. The 8-mm trocar sites were reapproximated using 4-0 Monocryl in an interrupted subcuticular fashion. The larger trocar sites were irrigated using warm normal saline and hydrogen peroxide solution of the colon extraction site. Local anesthetic was infiltrated to all wounds for postop analgesia. An Optifoam surgical dressing was placed over the colon extraction site. Liquid glue was applied to the rest of the skin incisions. The patient had tolerated the procedure well. Estimated blood loss was approximately 25 mL. The patient was extubated successfully. Intraoperative photos were reviewed with the patient's family who were overall pleased with the level of care. The patient was transferred to the postanesthesia care unit in stable condition. Console time 156 minutes
[2017-10-10] MEDS: HYDROmorphone 0.5 MG/0.5 ML SYRINGE IVP PRN ×4 (17:32→18:04)
[2017-10-10] MEDS ORDERED: SODIUM CHLORIDE 0.9% 1,000 ML IV ONE ×3 (17:56→18:04)
[2017-10-10] MEDS ORDERED: ACETAMINOPHEN TAB 325 MG TAB PO SCH (21:00)
[2017-10-10] MEDS: SODIUM CHLORIDE 0.9% 1,000 ML IV SCH (22:11)
[2017-10-10] MEDS: HEPARIN SODIUM,PORCINE 5,000 UNIT/ML 1 ML VIAL SQ SCH (23:29)
[2017-10-11] MEDS: SODIUM CHLORIDE 0.9% 1,000 ML IV SCH (05:49)
[2017-10-11] MEDS: HYDROcodone/APAP 5-325MG 1 EACH TAB PO PRN ×3 (05:52→16:15)
[2017-10-11] MEDS ORDERED: THYROID, PORK 30 MG TAB PO SCH (06:30)
[2017-10-11 07:23] LABS: Basophils % (A) 0 %; Eosinophils % (A) 0 %; HCT 31.6 % (34.0-46.0); HGB 10.6 gm/dL (11.4-16.0); Lymphocytes # (A) 1.7 k/uL (1.0-4.8); Lymphocytes % (A) 17 %; MCH 30.9 pg (25.0-35.0); MCHC 33.5 g/dL (31.0-37.0); MCV 92.4 fL (80.0-100.0); Monocytes # (A) 0.7 k/uL (0-1.0); Monocytes % (A) 7 %; Neutrophils # (A) 7.2 k/uL (1.3-7.7); Neutrophils % (A) 74 %; Platelet Count 159 k/uL (150-450); RBC 3.43 m/uL (3.80-5.40); RDW 12.8 % (11.5-15.5); WBC 9.8 k/uL (3.8-10.6)
[2017-10-11 07:40] LABS: Anion Gap 3 mmol/L; Blood Urea Nitrogen 12 mg/dL (7-17); Calcium 7.9 mg/dL (8.4-10.2); Carbon Dioxide 25 mmol/L (22-30); Chloride 110 mmol/L (98-107); Glucose 95 mg/dL (74-99); Potassium 3.9 mmol/L (3.5-5.1); Sodium 138 mmol/L (137-145)
[2017-10-11 08:03] VITALS: RESP 16
[2017-10-11] MEDS: HEPARIN SODIUM,PORCINE 5,000 UNIT/ML 1 ML VIAL SQ SCH ×2 (08:22→15:43)
[2017-10-11] MEDS ORDERED: ALVIMOPAN 12 MG CAPSULE PO SCH (09:00)
--- NOTE | 2017-10-11 10:32 | P.PN ---
Subjective Progress Note Date: 10/11/17 Principal diagnosis: Sigmoid volvulus Patient doing well today after sigmoid colectomy yesterday. Only mild discomfort. White blood cell count 9.8. Tolerating clears. Positive flatus. Objective - Vital Signs Vital signs: Vital Signs Temp 97.6 F 10/11/17 07:40 Pulse 80 10/11/17 07:40 Resp 16 10/11/17 07:40 BP 126/67 10/11/17 07:40 Pulse Ox 97 10/11/17 07:40 Intake & Output 10/10/17 10/11/17 10/11/17 18:59 06:59 18:59 Intake Total 2300 400 Output Total 350 1100 700 Balance 1950 -700 -700 Intake: IV 2300 400 Output: Urine 325 1100 700 Uretheral (Vasquez) 400 Estimated Blood Loss 25 Other: Voiding Method Indwelling Catheter Indwelling Catheter - Exam Abdomen: Soft, nondistended, incisions clean and dry - Labs CBC & Chem 7: 10/11/17 06:54 10/11/17 06:54 Labs: Abnormal Lab Results - Last 24 Hours (Table) 10/10/17 10/11/17 10/11/17 Range/Units 11:50 06:54 06:54 RBC 3.43 L (3.80-5.40) m/uL Hgb 10.6 L (11.4-16.0) gm/dL Hct 31.6 L (34.0-46.0) % Chloride 110 H (98-107) mmol/L Calcium 7.9 L (8.4-10.2) mg/dL Total Protein 6.2 L (6.3-8.2) g/dL Assessment and Plan (1) Sigmoid volvulus Narrative/Plan: Increase activity level. Advance diet to full liquids. Possible discharge later today or tomorrow Current Visit: Yes Status: Acute Code(s): K56.2 - VOLVULUS SNOMED Code(s) : 418143300
[2017-10-11 14:57] VITALS: BP 121/66; PULSE 70; TEMP 98.8
--- NOTE | 2017-10-13 18:08 | P.DS ---
Providers Date of admission: 10/10/17 10:51 Expected date of discharge: 10/11/17 Attending physician: Rochelle Cruz Primary care physician: Flavia Lawson - Discharge Diagnosis(es) (1) Peritoneal adhesions Status: Acute (2) Sigmoid volvulus Status: Acute Hospital Course: POSTOPERATIVE DIAGNOSES: 1. Sigmoid volvulus. 2. Ischemic cardiomyopathy 3. Hypertensive heart disease 4. Hypothyroidism 5. Depressive disorder 6. History of sigmoid colonic stricture 7. History of angina 8. Fibromyalgia 9. History of myocardial infarction 10. Gastroesophageal reflux disease The patient is a 72-year-old female admitted secondary to recurrent episodes of change in bowel habits and colon stricture due to sigmoid volvulus. She underwent robotic sigmoid colectomy. Post procedure she was doing well. Prior to discharge, she was tolerating diet. Follow-up instructions were reviewed. Procedures: OPERATION: 1. Robotic-assisted daVinci Xi laparoscopic sigmoid colectomy, multi-port ANESTHESIA: General with local ESTIMATED BLOOD LOSS: 25 mL SPECIMENS REMOVED: sigmoid colon FINDINGS: 1. Severe scarring along the left pelvis from previous hysterectomy causing stricture and lead point for sigmoid volvulus 2. Linear intracorporeal isoperistaltic anastomosis colo-colon anastomosis using 45 mm blue staple load. 3. At least 6 staplers robotic used, 45 mm blue load. 4. Robotic arms using multiport, stapler along the right upper and left upper quadrant. 5. All ports place 15 to 20 cm away from target anatomy, the sigmoid colon. 6. Specimen extracted from the left upper quadrant port. 7. Anastomosis oversewn using 3-0 silk and 3-0 Vicryl Patient Condition at Discharge: Stable Plan - Discharge Summary Discharge Rx Participant: Yes New Discharge Prescriptions: New HYDROcodone/APAP 7.5-325MG [[place] 7.5-325] 1 tab PO Q4H PRN 3 Days #18 tab PRN Reason: Pain Continue Ranitidine HCl [Zantac] 150 mg PO DAILY PRN PRN Reason: Heartburn Pregnenolone 50 mg PO DAILY Adrenogen 30 mg PO BID Progesterone, Micronized [Progesterone] 100 mg PO QAM Thyroid,Pork [[place] Thyroid] 120 mg PO QAM Magnesium 200 mg PO BID-W/MEALS DULoxetine HCL [Cymbalta] 30 mg PO BID Estradiol Cream [Estrace Cream 0.01%] 1 gm VAGINAL SUWE Estradiol [Estradiol 0.1 MG Patch] 1 patch TRANSDERM SUWE Cholecalciferol [Vitamin D3] 5,000 unit PO DAILY Acetaminophen [Tylenol Arthritis] 650 mg PO HS Cyanocobalamin [Vitamin B-12 Injection] 1,000 mcg SQ DIRECTED Discontinued [place]-3 Fatty Acids/Fish Oil [Fish Oil 1,000 mg Softgel] 1,000 mg PO DAILY Clopidogrel [Plavix] 75 mg PO DAILY Metaxalone 800 mg PO DAILY PRN PRN Reason: Pain Dicyclomine [Bentyl] 20 mg PO TID #30 tablet Discharge Medication List Adrenogen 30 mg PO BID 01/12/15 [History] Pregnenolone 50 mg PO DAILY 01/12/15 [History] Ranitidine HCl [Zantac] 150 mg PO DAILY PRN 01/12/15 [History] Cholecalciferol [Vitamin D3] 5,000 unit PO DAILY 03/03/17 [History] DULoxetine HCL [Cymbalta] 30 mg PO BID 03/03/17 [History] Estradiol Cream [Estrace Cream 0.01%] 1 gm VAGINAL SUWE 03/03/17 [History] Estradiol [Estradiol 0.1 MG Patch] 1 patch TRANSDERM SUWE 03/03/17 [History] Magnesium 200 mg PO BID-W/MEALS 03/03/17 [History] Progesterone, Micronized [Progesterone] 100 mg PO QAM 03/03/17 [History] Thyroid,Pork [[place] Thyroid] 120 mg PO QAM 03/03/17 [History] Acetaminophen [Tylenol Arthritis] 650 mg PO HS 09/26/17 [History] Cyanocobalamin [Vitamin B-12 Injection] 1,000 mcg SQ DIRECTED 10/10/17 [ History] HYDROcodone/APAP 7.5-325MG [[place] 7.5-325] 1 tab PO Q4H PRN 3 Days #18 tab 10/10 [Rx] Follow up Appointment(s)/Referral(s): Rochelle Cruz MD [STAFF PHYSICIAN] - 10/14/17 (Call to confirm time) Patient Instructions/Handouts: Colectomy (GEN), Full Liquid Diet (DC), Colectomy Diet (DC) Activity/Diet/Wound Care/Special Instructions: High-protein diet with protein shakes. Full liquid until follow up on Friday. May shower. No bath tub soaks. No lifting over 4 pounds in 4 weeks. Discharge Disposition: HOME SELF-CARE
== END 2017-10-11 16:38 | disposition home or self-care (01) | DRG 330 ==
LOC: 2ORMAIN 10:51 → 4MS4W 16:45 → 3SUR 19:13
PROVIDERS: ADMIT Surgery Plastic and Reconstructive Surgery; ATTEND Surgery Plastic and Reconstructive Surgery
PROC: 8E0W4CZ Robotic Assisted Procedure of Trunk Region, Percutaneous Endoscopic Approach (ICD-10-PCS; 2017-10-10)
PROC: 0DBN4ZZ Excision of Sigmoid Colon, Percutaneous Endoscopic Approach (ICD-10-PCS; principal; 2017-10-10 12:30)
DX: K56.2 Volvulus (principal); Q43.8 Other specified congenital malformations of intestine; E03.9 Hypothyroidism, unspecified; E78.5 Hyperlipidemia, unspecified; F32.9 Major depressive disorder, single episode, unspecified; I11.9 Hypertensive heart disease without heart failure; I25.2 Old myocardial infarction; I25.5 Ischemic cardiomyopathy; K21.9 Gastro-esophageal reflux disease without esophagitis; K66.0 Peritoneal adhesions (postprocedural) (postinfection); M79.7 Fibromyalgia; Z79.02 Long term (current) use of antithrombotics/antiplatelets; Z86.73 Personal history of transient ischemic attack (TIA), and cerebral infarction without residual deficits; Z90.710 Acquired absence of both cervix and uterus; I25.10 Atherosclerotic heart disease of native coronary artery without angina pectoris; Z95.5 Presence of coronary angioplasty implant and graft; R53.83 Other fatigue; K59.09 Other constipation; Z98.49 Cataract extraction status, unspecified eye; Z82.3 Family history of stroke; Z82.49 Family history of ischemic heart disease and other diseases of the circulatory system
CPT/HCPCS: 80048; 80053; 85025; 86850; 86900; 86901; 88307

== ENCOUNTER → 2019-09-22 | Day surgery (SDC) | payer MEDICARE, BC ==
[2019-09-20 15:41] VITALS: BMI 25.4
[~2019-09-22] MED LIST changes: -ACETAMINOPHEN TAB 500 MG TAB PO ONE; -ALVIMOPAN 12 MG CAPSULE PO ONE; -Antibiotics per Pharmacy 1 EACH MISC MISCELLANE PRN; -HEPARIN SODIUM,PORCINE 5,000 UNIT/ML 1 ML VIAL SQ ONE; +LACTATED RINGERS 1,000 ML IV SCH; -LIDOCAINE 1% 20 ML VIAL (10MG/ML) FOR IV START INTRADERMA PRN; +PROPOFOL 10 MG/ML 20 ML VIAL IV ONE; -ceFAZolin IN SWFI 2 GM/20 ML SYRINGE IVP ONE; -metroNIDAZOLE-NS PMX 500 MG in SALINE 1 100ML.BAG IVPB ONE
--- NOTE | 2019-09-22 08:05 | P.GSHP ---
History of Present Illness H&P Date: 09/22/19 CHIEF COMPLAINT: GERD and colon screen HISTORY OF PRESENT ILLNESS: The patient is a 74-year-old female who presents with gastroesophageal reflux disease and need for colon screen. Upper and lower endoscopy were offered for further evaluation and management. PAST MEDICAL HISTORY: Please see list. PAST SURGICAL HISTORY: Please see list. MEDICATIONS: Please see list. ALLERGIES: Please see list. SOCIAL HISTORY: No illicit drug use FAMILY HISTORY: No reports of Crohn disease or ulcerative colitis. REVIEW OF ORGAN SYSTEMS: CONSTITUTIONAL: No reports of fevers or chills. GI: Denies any blood in stools or constipation. PHYSICAL EXAM: VITAL SIGNS: Stable GENERAL: Well-developed pleasant in no acute distress. HEENT: No scleral icterus. Extraocular movements grossly intact. Moist buccal mucosa. NECK: Supple without lymphadenopathy. CHEST: Unlabored respirations. Equal bilateral excursions. CARDIOVASCULAR: Regular rate and rhythm. Distal 2+ pulses. ABDOMEN: Soft, nondistended. MUSCULOSKELETAL: No clubbing, cyanosis, or edema. ASSESSMENT: 1. Gastroesophageal reflux disease 2. Colon screen. PLAN: 1. Recommend proceeding with an upper and lower endoscopy Past Medical History Past Medical History: Chest Pain / Angina, CVA/TIA, GERD/Reflux, Hyperlipidemia, Myocardial Infarction ([place]), Neurologic Disorder, Thyroid Disorder Additional Past Medical History / Comment(s): freq constipation,diarrhea and pain r/t diverticulitis,raynauds, fibromyalgia, "b/p runs low", pain-cervical area and lower back, ? CVA -had blood clot to eye (in her 30's) which resolved., Hiatal hernia., Hypothyroid,. ADRENAL FATIGUE Last Myocardial Infarction Date:: 11/2013 History of Any Multi-Drug Resistant Organisms: None Reported Past Surgical History: Cholecystectomy, Heart Catheterization With Stent, Hysterectomy Additional Past Surgical History / Comment(s): CYSTOCELE, CATARACTS, GROWTH ON HAND, GODFREY CARPAL TUNNEL, GODFREY ROTATOR CUFF., THUMB SURGERY. Past Anesthesia/Blood Transfusion Reactions: Postoperative Nausea & Vomiting (PONV) Additional Past Anesthesia/Blood Transfusion Reaction / Comment(s): PONV X1,no hx blood transfusion Date of Last Stent Placement:: 11/2013 Smoking Status: Never smoker - Past Family History Brother(s) Additional Family Medical History / Comment(s): pacemaker Mother Family Medical History: CVA/TIA Medications and Allergies Home Medications Medication Instructions Recorded Confirmed Type Cholecalciferol [Vitamin D3 (25 5,000 unit PO Q2D 03/03/17 09/20/19 History Mcg = 1000 Iu)] DULoxetine HCL [Cymbalta] 90 mg PO QAM 03/03/17 09/20/19 History Magnesium 500 mg PO HS 03/03/17 09/20/19 History Progesterone, Micronized 175 mg PO QAM 03/03/17 09/20/19 History [Progesterone] Cyanocobalamin [Vitamin B-12 5,000 mcg SQ Q7D 10/10/17 09/20/19 History Injection] Ascorbic Acid [Vitamin C] 500 mg PO DAILY 09/20/19 09/20/19 History Aspirin 81 mg PO HS 09/20/19 09/20/19 History Cannabidiol (Cbd) [Epidiolex] 1 dose TOPICAL HS 09/20/19 09/20/19 History Cimetidine [Tagamet] 400 mg PO HS 09/20/19 09/20/19 History Estradiol Cream [Estrace Cream 1 gm VAGINAL Q7DAYS 09/20/19 09/20/19 History 0.01%] Glucosam/Walter-Msm1/C/Abram/Bosw 2 each PO HS 09/20/19 09/20/19 History [[id number] Tb] Isosorbide Mononitrate [Isosorbide 30 mg PO HS 09/20/19 09/20/19 History Mononitrate ER] Multivitamin [Multivitamins Adult 1 each PO DAILY 09/20/19 09/20/19 History Gummies] [place]-3 Fatty Acids/Fish Oil [Fish 1 each PO DAILY 09/20/19 09/20/19 History Oil 1,000 mg Softgel] Rosuvastatin Calcium 5 mg PO DAILY 09/20/19 09/20/19 History estradioL [Estradiol 0.1 MG Patch] 1 patch TRANSDERM Q3D 09/20/19 09/20/19 History Allergies Allergy/AdvReac Type Severity Reaction Status Date / Time pravastatin [From Pravachol] Allergy low Verified 09/20/19 15:27 b/p,severe fatigue adhesive AdvReac skin Verified 09/20/19 15:27 irritation
[2019-09-22 08:17] VITALS: TEMP 97.8
--- NOTE | 2019-09-22 09:43 | P.PCN ---
Date of Procedure: 09/22/19 Description of Procedure: PREOPERATIVE DIAGNOSIS: Gastroesophageal reflux disease. POSTOPERATIVE DIAGNOSIS: Gastritis. Gastroesophageal reflux disease. OPERATION: Esophagogastroduodenoscopy with biopsies along antrum. SURGEON: Rochelle Cruz MD ANESTHESIA: MAC. INDICATIONS: The patient is a 74-year-old female who presents with a history of reflux disease. Benefits and risks of the procedure were described. Informed consent was obtained. DESCRIPTION: The patient was brought into the endoscopy suite and laid in the left lateral decubitus position. An Olympus gastroscope was passed along the posterior oropharynx down to the distal esophagus where the squamocolumnar junction was encountered at 33 cm from the incisors. The stomach was entered and no bile reflux was found. Additional findings are listed below. Biopsies with cold forceps were obtained of the antrum. The first through third portion of the duodenum was examined and unremarkable. Retroflexion of the scope confirmed Hill grade 2 lower esophageal valve. The squamocolumnar junction demonstrated LA grade A erosive esophagitis. The stomach was desufflated. The patient tolerated the procedure well. FINDINGS: Squamocolumnar junction 33 cm from the incisors. Diaphragmatic hiatus at 33 cm. Hill grade 2 lower esophageal valve. LA grade A erosive esophagitis. No active duodenitis. Chronic gastritis with recent bleed RECOMMENDATIONS: Upper endoscopy as needed.
--- NOTE | 2019-09-22 09:50 | P.PCN ---
Date of Procedure: 09/22/19 Description of Procedure: PREOPERATIVE DIAGNOSIS: History of sigmoid volvulus History of partial colectomy Change in bowel habits POSTOPERATIVE DIAGNOSIS: History of sigmoid volvulus History of partial colectomy Change in bowel habits Descending and sigmoid diverticulosis OPERATION: Colonoscopy to the cecum, ileocecal valve and appendiceal orifice. SURGEON: Rochelle Cruz MD. ANESTHESIA: MAC. INDICATIONS: The patient is a 74-year-old female who presents with change in bowel habits. Benefits and risks were described and informed consent was obtained. DESCRIPTION OF PROCEDURE: The patient had undergone Suprep. She had been brought into the operating room and laid in the left lateral decubitus position. After adequate intravenous sedation, the rectum was examined with 2% lidocaine jelly. External hemorrhoids were encountered. The rectal tone was within normal limits. No lesions were pal pated in the rectal vault. An pediatric Olympus colonoscope was advanced until the cecum, ileocecal valve and appendiceal orifice were clearly viewed. The prep was poor. Sigmoid diverticulosis was found involving the descending including sigmoid colon. Previous anastomosis 30 cm was unremarkable. A sharp angulation at the rectosigmoid junction was identified. No colonic polyps were found. No evidence of focal colitis was found. Retroflexion of the scope demonstrated grade 1 internal hemorrhoids without active bleeding or inflammation. The colon was desufflated. The patient had tolerated the procedure well. Withdrawal time was over 6 minutes. FINDINGS: Aronchick preparation quality scale (1-5) Internal hemorrhoids, grade 1 External prolapsed hemorrhoids, grade 2 No arteriovenous malformations. No adenomatous polyps. No focal colitis. RECOMMENDATIONS: Lower endoscopy as needed. Plan - Discharge Summary Discharge Rx Participant: No New Discharge Prescriptions: Continue Progesterone, Micronized [Progesterone] 175 mg PO QAM Magnesium 500 mg PO HS DULoxetine HCL [Cymbalta] 90 mg PO QAM Cholecalciferol [Vitamin D3 (25 Mcg = 1000 Iu)] 5,000 unit PO Q2D Cyanocobalamin [Vitamin B-12 Injection] 5,000 mcg SQ Q7D estradioL [Estradiol 0.1 MG Patch] 1 patch TRANSDERM Q3D [place]-3 Fatty Acids/Fish Oil [Fish Oil 1,000 mg Softgel] 1 each PO DAILY Glucosam/Walter-Msm1/C/Abram/Bosw [Kqckhbdfqjx-Ykrmspenvch-HVU Tb] 2 each PO HS Aspirin 81 mg PO HS Ascorbic Acid [Vitamin C] 500 mg PO DAILY Rosuvastatin Calcium 5 mg PO DAILY Cimetidine [Tagamet] 400 mg PO HS Isosorbide Mononitrate [Isosorbide Mononitrate ER] 30 mg PO HS Estradiol Cream [Estrace Cream 0.01%] 1 gm VAGINAL Q7DAYS Cannabidiol (Cbd) [Epidiolex] 1 dose TOPICAL HS Multivitamin [Multivitamins Adult Gummies] 1 each PO DAILY Discharge Medication List Cholecalciferol [Vitamin D3 (25 Mcg = 1000 Iu)] 5,000 unit PO Q2D 03/03/17 [History] DULoxetine HCL [Cymbalta] 90 mg PO QAM 03/03/17 [History] Magnesium 500 mg PO HS 03/03/17 [History] Progesterone, Micronized [Progesterone] 175 mg PO QAM 03/03/17 [History] Cyanocobalamin [Vitamin B-12 Injection] 5,000 mcg SQ Q7D 10/10/17 [History] Ascorbic Acid [Vitamin C] 500 mg PO DAILY 09/20/19 [History] Aspirin 81 mg PO HS 09/20/19 [History] Cannabidiol (Cbd) [Epidiolex] 1 dose TOPICAL HS 09/20/19 [History] Cimetidine [Tagamet] 400 mg PO HS 09/20/19 [History] Estradiol Cream [Estrace Cream 0.01%] 1 gm VAGINAL Q7DAYS 09/20/19 [History] Glucosam/Walter-Msm1/C/Abram/Bosw [Ytaxqphadma-Badvgmjkyod-ESP Tb] 2 each PO HS 09/20/19 [History] Isosorbide Mononitrate [Isosorbide Mononitrate ER] 30 mg PO HS 09/20/19 [History] Multivitamin [Multivitamins Adult Gummies] 1 each PO DAILY 09/20/19 [History] [place]-3 Fatty Acids/Fish Oil [Fish Oil 1,000 mg Softgel] 1 each PO DAILY 09/20/19 [History] Rosuvastatin Calcium 5 mg PO DAILY 09/20/19 [History] estradioL [Estradiol 0.1 MG Patch] 1 patch TRANSDERM Q3D 09/20/19 [History] Follow up Appointment(s)/Referral(s): Rochelle Cruz MD [STAFF PHYSICIAN] - 10/05/19 Patient Instructions/Handouts: Gastritis (DC), Gastroesophageal Reflux Disease (DC), Diet for Stomach Ulcers and Gastritis (GEN), Diverticulosis Diet (GEN), Diverticulosis (DC) Activity/Diet/Wound Care/Special Instructions: Diet as tolerated. Repeat colonoscopy as needed Discharge Disposition: HOME SELF-CARE
[2019-09-22 10:11] VITALS: BP 123/67; PULSE 64; RESP 16
== END | disposition home or self-care (01) ==
LOC: ORWHC2ENDO 08:00
PROVIDERS: ATTEND Surgery Plastic and Reconstructive Surgery
DX: K21.0 Gastro-esophageal reflux disease with esophagitis (principal); K22.10 Ulcer of esophagus without bleeding; K29.50 Unspecified chronic gastritis without bleeding; K57.30 Diverticulosis of large intestine without perforation or abscess without bleeding; K64.4 Residual hemorrhoidal skin tags; K64.0 First degree hemorrhoids; K64.8 Other hemorrhoids; E78.5 Hyperlipidemia, unspecified; I25.2 Old myocardial infarction; I73.00 Raynaud's syndrome without gangrene; M79.7 Fibromyalgia; K44.9 Diaphragmatic hernia without obstruction or gangrene; E03.9 Hypothyroidism, unspecified; K08.89 Other specified disorders of teeth and supporting structures; I10 Essential (primary) hypertension; D64.9 Anemia, unspecified; F32.9 Major depressive disorder, single episode, unspecified; Z86.73 Personal history of transient ischemic attack (TIA), and cerebral infarction without residual deficits; Z86.79 Personal history of other diseases of the circulatory system; Z90.49 Acquired absence of other specified parts of digestive tract; Z87.19 Personal history of other diseases of the digestive system; Z86.69 Personal history of other diseases of the nervous system and sense organs; Z95.5 Presence of coronary angioplasty implant and graft; Z90.710 Acquired absence of both cervix and uterus; Z98.890 Other specified postprocedural states; Z87.448 Personal history of other diseases of urinary system; Z98.41 Cataract extraction status, right eye; Z98.42 Cataract extraction status, left eye; Z87.39 Personal history of other diseases of the musculoskeletal system and connective tissue; Z91.89 Other specified personal risk factors, not elsewhere classified; Z79.899 Other long term (current) drug therapy; Z79.890 Hormone replacement therapy; Z79.82 Long term (current) use of aspirin; Z88.8 Allergy status to other drugs, medicaments and biological substances; Z91.09 Other allergy status, other than to drugs and biological substances; Z97.2 Presence of dental prosthetic device (complete) (partial); Z98.0 Intestinal bypass and anastomosis status; Z82.49 Family history of ischemic heart disease and other diseases of the circulatory system; Z82.3 Family history of stroke
CPT/HCPCS: 88305; 45378; 43239; J2704

== ENCOUNTER → 2021-07-06 | Outpatient (CLI) | payer MEDICARE, BC ==
--- NOTE | 2021-07-06 15:51 | XR ---
EXAMINATION TYPE: XR chest 2V DATE OF EXAM: 07/06/2021 COMPARISON: NONE HISTORY: Preop TECHNIQUE: Frontal and lateral views of the chest are obtained. FINDINGS: There is no focal air space opacity, pleural effusion, or pneumothorax seen. The cardiac silhouette size is within normal limits. The osseous structures are intact. IMPRESSION: No acute cardiopulmonary process.
[2021-07-06 22:22] LABS: African American GFR (CKD) 98.8 (60.0-200.0); Anion Gap 9.2 mmol/L (10.00-18.00); BUN/Creat Ratio 32.82 Ratio (12.00-20.00); Blood Urea Nitrogen 21.2 mg/dL (9.0-27.0); Calcium 9.1 mg/dL (8.7-10.3); Carbon Dioxide 23.9 mmol/L (20.0-27.5); Non-African American GFR(CKD) 85.2 (60.0-200.0); Potassium 4.3 mmol/L (3.5-5.5)
[2021-07-06 22:52] LABS: Appearance,Urine Clear (Clear); Bilirubin,Urine Negative (Negative); Blood,Urine Negative (Negative); Color,Urine Yellow (Yellow); Ketones,Urine Negative (Negative); Nitrite,Urine Negative (Negative); PH, Urine 6.5 (5.0-8.0); Specific Gravity,Urine 1.024 (1.001-1.030); Urobilinogen,Urine 0.2 (0.2,1.0)
== END | disposition home or self-care (01) ==
LOC: LABPAT 15:16
PROVIDERS: ATTEND Orthopaedic Surgery Orthopaedic Surgery of the Spine
DX: Z01.818 Encounter for other preprocedural examination (principal); M54.10 Radiculopathy, site unspecified
CPT/HCPCS: 36415; 71046; 80048; 81003

== ENCOUNTER 2021-07-18 06:20 | Day surgery (SDC) | payer MEDICARE, BC ==
[2021-07-16 14:25] VITALS: BMI 25.9
[~2021-07-18 06:20] MED LIST changes: +HYDROmorphone 0.5 MG/0.5 ML SYRINGE IVP PRN; -LACTATED RINGERS 1,000 ML IV SCH; +LIDOCAINE 1% (10MG/ML) FOR IV START INTRADERMA PRN; +ONDANSETRON 4 MG/2 ML VIAL IVP ONE; -PROPOFOL 10 MG/ML 20 ML VIAL IV ONE; +ceFAZolin 1,000 MG in SODIUM CHLORIDE 0.9% IRRIGATIO 1,000 ML IRRIGATION PRN
[2021-07-18] MEDS ORDERED: ONDANSETRON 4 MG/2 ML VIAL ONE ×2 (07:26→07:35)
[2021-07-18 07:27] LABS: Glucose,Whole Blood 89 mg/dL (75-99)
[2021-07-18] MEDS: LACTATED RINGERS 1,000 ML IV SCH (07:30)
[2021-07-18] MEDS ORDERED: DEXAMETHASONE SOD PHOSPHATE 4 MG/ML 1 ML VIAL IVP ONE (07:30)
[2021-07-18] MEDS ORDERED: DEXTROSE 50% SYRINGE 50 ML IVP ONE (07:30)
[2021-07-18] MEDS ORDERED: LIDOCAINE 2% INJ 20 MG/ML (2 ML VIAL) ONE (07:35)
[2021-07-18] MEDS ORDERED: DEXAMETHASONE SOD PHOSPHATE 10 MG/ML 1 ML VIAL ONE (07:35)
[2021-07-18] MEDS ORDERED: PROPOFOL 10 MG/ML 20 ML VIAL IV ONE (07:35)
[2021-07-18] MEDS ORDERED: GLYCOPYRROLATE 0.2 MG/ML 2 ML VIAL ONE (07:35)
[2021-07-18] MEDS ORDERED: ROCURONIUM 10 MG/ML (5 ML VIAL) IV ONE (07:35)
[2021-07-18] MEDS ORDERED: NEOSTIGMINE 1 MG/ML 10 ML VIAL ONE (07:35)
[2021-07-18] MEDS ORDERED: MIDAZOLAM 2 MG/2 ML VIAL ONE (07:35)
[2021-07-18] MEDS ORDERED: PHENYLEPHRINE-0.9% NACL SYG 1,000 MCG/10 ML SYRINGE ONE (07:35)
[2021-07-18] MEDS ORDERED: fentaNYL (PF) 50 MCG/ML 2 ML AMP ONE (07:35)
[2021-07-18] MEDS ORDERED: SUCCINYLCHOLINE CHLORIDE 100 MG/5 ML SYR IV ONE (07:35)
[2021-07-18] MEDS ORDERED: THROMBIN (BOVINE) 5,000 UNIT VIAL TOPICAL ONE (07:42)
[2021-07-18] MEDS ORDERED: LACTATED RINGERS 1,000 ML IV ONE (07:42)
[2021-07-18] MEDS ORDERED: LIDOCAINE 0.5%-EPI 1:200,000 50 ML VIAL SQ ONE (07:42)
[2021-07-18] MEDS ORDERED: GELATIN SPONGE,ABSORB (LARGE) 1 EACH SPONGE TOPICAL ONE (07:42)
--- NOTE | 2021-07-18 10:03 | XR ---
EXAMINATION TYPE: XR cervical spine 1V DATE OF EXAM: 07/18/2021 COMPARISON: 07/18/2021 HISTORY: Hardware placement TECHNIQUE: Crosstable lateral view of the cervical spine is obtained. FINDINGS: There is anterior cervical fusion C4-C7. Disc spaces are utilized. Prevertebral space appea rs normal. Patient is intubated. IMPRESSION: 1. Post anterior cervical fusion
--- NOTE | 2021-07-18 10:04 | XR ---
EXAMINATION TYPE: XR cervical spine 1V DATE OF EXAM: 07/18/2021 COMPARISON: 07/18/2021 HISTORY: Cervical fusion, needle placement TECHNIQUE: Crosstable lateral cervical spine is obtained intraoperatively FINDINGS: [place] directed to the C6-7 disc level. Patient is intubated. IMPRESSION: 1. Medial directed towards the C6-7 disc level
[2021-07-18] MEDS ORDERED: BENZOCAINE/MENTHOL LOZENG 1 EACH LOZENGE MUCOUS MEM PRN (10:13)
[2021-07-18] MEDS ORDERED: HYDROmorphone 0.5 MG/0.5 ML SYRINGE IVP PRN (10:13)
[2021-07-18] MEDS ORDERED: ACETAMINOPHEN TAB 325 MG TAB PO PRN (10:14)
[2021-07-18] MEDS ORDERED: ONDANSETRON 4 MG/2 ML VIAL IVP PRN (10:14)
[2021-07-18] MEDS ORDERED: HYDROcodone/APAP 5-325MG 1 EACH TAB PO PRN (10:14)
[2021-07-18] MEDS ORDERED: traMADol 50 MG TAB PO PRN (10:14)
[2021-07-18] MEDS ORDERED: NON FORMULARY DRUG (Acetaminophen [Tylenol Arthritis] 650 MG Tablet) PO PRN (10:16)
[2021-07-18] MEDS ORDERED: CANNABIDIOL 100 MG/ML TOPICAL PRN (10:16)
[2021-07-18] MEDS ORDERED: PANTOPRAZOLE 40 MG TABLET PO PRN (10:16)
--- NOTE | 2021-07-18 10:24 | P.OP ---
Date of Procedure: 07/18/21 Preoperative Diagnosis: Cervical stenosis, degenerative disc disease, upper extremity radiculopathy, neck pain, facet arthrosis Postoperative Diagnosis: Same Anesthesia: GETA Pathology: none sent Condition: stable Disposition: PACU Description of Procedure: BRIEF OPERATIVE NOTE Preoperative Diagnosis:Cervical stenosis, degenerative disc disease, upper e xtremity radiculopathy, neck pain, facet arthrosis Postoperative Diagnosis:Cervical stenosis, degenerative disc disease, upper extremity radiculopathy, neck pain, facet arthrosis Procedure: Anterior cervical decompression with discectomy and fusion C4 5 C5 6 C6 7 Placement of interbody graft C4 5 C5 6 C6 7 Application of anterior cervical plate C4 5 6 and 7 Surgeon: Dr. Parrish Wrapping Clerk: Amado Fernandez is present throughout the entire the case persistence during positioning, dissection, exposure, visualization, and all crucial elements of the case as well as closure. Anesthesia: General anesthesia Estimated blood loss: Approximately 100 mL Complications: None apparent Components implanted: K2M [place] anterior cervical plate system with screws and 3 Vikos interbody allograft bone graft with 1 mL of DBX bone putty Disposition: To recovery room in good stable condition. OPERATIVE INDICATIONS The patient has had long-standing issues in their neck and upper extremities. She is having worsening pain at her neck and particularly at her left upper extremity. She is found have severe disc degeneration with cervical stenosis C4 5 C5 6 and C6 7 which correlated well with her neck and upper extremity symptoms. The patient has been through conservative treatment. She is not having any benefit despite aggressive conservative care. We discussed various treatment options including surgery, and the patient wishes to proceed with surgery We discussed the risk, patient's alternatives and benefits of surgery including but not limited to, risk of bleeding risk of infection, risk of need for further surgery, risk of decreased, loss of motion, muscle function, malunion nonunion, hardware failure, nerve damage, paralysis, heart attack, and , as well as the fact that surgery may not alleviate her symptoms. OPERATIVE SUMMARY After discussing all the risks, patient alternatives and benefits at length, the patient elected to proceed with surgical intervention, signed informed consent, and presented for their procedure. The patient was seen and examined in the preoperative holding area and the surgical site was marked. The patient was giv en antibiotics and brought to the operating room. The patient was positioned on the operating room table in a supine position being careful to pad any bony prominences and pressure points. The patient was sedated and intubated by anesthesia in standard fashion. Once the airway and C- spine were stabilized the patient's arms were padded and tucked at her side, with her shoulders gently taped. The head was placed in a donut pad with the neck in good neutral alignment and position. We were careful to maintain the patient's cervical spine and good neutral alignment and position throughout. The patient was prepped and draped in a normal standard fashion. An appropriate timeout and keystone protocol performed. We were able to proceed with the surgery. The local wound area was infiltrated with local anesthetic. An incision was made transversely approximately 2-1/2 cm over the appropriate levels at C6 7. Dissection was taken down subcutaneously to the level of the platysma which was split in line with its fibers. Dissection was taken with a carotid approach, with the trachea and esophagus medial and the carotid sheath laterally. We dissected down to the anterior surface of the vertebral bodies. Intraoperative x-ray was taken which showed a marker at the appropriate level at C6 7. With the appropriate level positively confirmed, we were able to proceed with discectomy at the appropriate levels. All of the operative levels were exposed appropriately. The patient had all their twitches back, and there was no evidence of recurrent laryngeal issue. The wound was copiously irrigated and suctioned dry as had been done periodically throughout the case. At the appropriate level/levels, starting at C4 5 and then moving to C5 6 and C6 7, I established an annulotomy with an 11 blade scalpel. A discectomy was performed with a combination of pituitary rongeurs, curettes, a high-speed bur, and Kerrison rongeurs. The posterior longitudinal ligament was taken down as were any posterior osteophytes. This gave good central and bilateral foraminal decompression. There had been significant disc protrusion and large posterior osteophytes which were removed and needed with the decompression of the cord and neural foramen bilaterally. There is no evidence of any dural tear or leak. The endplates were prepared with a high-speed bur. With the endplates in good parallel position, I was able to size for the appropriate size interbody graft. The wound was irrigated and suctioned dry the graft was prepared and malleted into position. It had good alignment and position with the anterior surface flush with the anterior surface of the vertebral bodies. This was done similarly the appropriate levels at C4 5 C5 6 and C6 7. With the grafts intact, I was able to measure and contour and appropriate sized plate. The plate was positioned at the midline over the appropriate levels from C4 to 7. Screw holes were established with a hand drill and drill guide. Screw s were placed in good alignment and position with excellent bony purchase. They were seated under the locking device. The construct was checked and found to be stable. Intraoperative x-ray was taken which showed good alignment and position of the implants at the appropriate levels. There was no evidence of any dural tear or leak. Good hemostasis was maintained. The wound was copiously irriga aidee and suctioned dry as had been done periodically throughout the case. The platysma was closed with absorbable suture. The subcutaneous tissue was closed. The subcuticular tissue was closed with absorbable suture. The wound was cleaned and dried and dressed appropriately. A soft cervical collar was placed appropriately. The patient was woken up by anesthesia, extubated, transferred back gently to their hospital bed and brought to the recovery room in good stable condition. The patient will be admitted to the hospital for appropriate postoperative care, medical management and monitoring. We will continue to follow them closely about the postoperative course.
[2021-07-18] MEDS ORDERED: ESTRADIOL TRANSDERM SCH (11:00)
[2021-07-18] MEDS: SODIUM CHLORIDE 0.9% 1,000 ML IV SCH (12:46)
[2021-07-18] MEDS: HYDROcodone/APAP 5-325MG 1 EACH TAB PO PRN ×2 (13:16→19:16)
[2021-07-18 20:32] VITALS: RESP 16
[2021-07-18] MEDS ORDERED: LATANOPROST 0.005% OPHTH DROPS 2.5 ML BTL BOTH EYES SCH (21:00)
[2021-07-18] MEDS ORDERED: MAGNESIUM OXIDE 400 MG TAB PO SCH (21:00)
[2021-07-18] MEDS ORDERED: NON FORMULARY DRUG (Progesterone, Micronized [Progesterone] 200 MG Capsule) PO SCH (21:00)
[2021-07-18] MEDS ORDERED: polyethylene glycoL 3350 17 GM POWD.PACK PO SCH (21:00)
[2021-07-19] MEDS: HYDROcodone/APAP 5-325MG 1 EACH TAB PO PRN ×2 (01:03→08:27)
[2021-07-19] MEDS: SODIUM CHLORIDE 0.9% 1,000 ML IV SCH (02:44)
[2021-07-19 05:04] VITALS: BP 129/68; PULSE 67; TEMP 98.4
[2021-07-19] MEDS: LACTATED RINGERS 1,000 ML IV SCH (07:38)
[2021-07-19] MEDS ORDERED: VITAMIN E (DL,TOCOPHERYL ACET) 400 UNIT (180 MG) CAP PO SCH (09:00)
[2021-07-19] MEDS ORDERED: MULTIVITAMINS, THERA 1 EACH TAB PO SCH (09:00)
[2021-07-19] MEDS ORDERED: CLOPIDOGREL 75 MG TAB PO SCH (09:00)
[2021-07-19] MEDS ORDERED: ZINC SULFATE 220 MG CAP PO SCH (09:00)
[2021-07-19] MEDS ORDERED: THYROID, PORK 30 MG TAB PO SCH ×2 (09:00)
[2021-07-19] MEDS ORDERED: ATORVASTATIN 10 MG TAB PO SCH (09:00)
[2021-07-19] MEDS ORDERED: DULoxetine HCL 60 MG CAPSULE.DR PO SCH (09:00)
[2021-07-19] MEDS ORDERED: CHOLECALCIFEROL 125 MCG (5000 IU) TABLET PO SCH (09:00)
[2021-07-19] MEDS ORDERED: NON FORMULARY DRUG (Omega-3 Fatty Acids/Fish Oil [Fish Oil 1,000 Mg Softgel] 1 EACH Capsul PO SCH (09:00)
[2021-07-19] MEDS ORDERED: DULoxetine HCL 30 MG CAPSULE.DR PO SCH (09:00)
[2021-07-19] MEDS ORDERED: ASCORBIC ACID 500 MG TAB PO SCH (09:00)
[2021-07-19] MEDS ORDERED: NON FORMULARY DRUG (Turmeric Root Extract [Turmeric] 500 MG Capsule) PO SCH (09:00)
[2021-07-19] MEDS ORDERED: NON FORMULARY DRUG (Ubidecarenone [Co Q-10] 100 MG Capsule) PO SCH (09:00)
--- NOTE | 2021-07-19 09:58 | P.DS ---
Providers Date of admission: 07/18/21 Attending physician: Natan Parrish Primary care physician: Flavia Lawson Hospital Course: The patient presented on the day of admission as per their operative note. She is now postoperative day #1 status post anterior cervical decompression with discectomy and fusion C3 4 5 C5 6 C6 7 for her cervical stenosis with upper extremity radiculopathy and neck pain. She says she is feeling good. She said her arms are doing well and her neck feels good she has some swelling in the front of her neck which feels tight but she is swallowing and talking quite well and that area is soft. Physical Exam The incision site is clean dry and intact. There is no erythema no drainage. There is no purulence no evidence of infection. Her neck is soft and supple but there is some diffuse swelling in front of her neck. There is no erythema there is no drainage. She is talking well and breathing comfortably on room air. Abdomen soft and nontender. Chest has good excursion with deep inspiration and expiration. The patient has active and passive range of motion intact at the upper and lower extremities. There is no acute change in neurologic status. She has good motion in her bilateral upper extremities Hospital Course Postoperative day 2 as was anterior cervical decompression with discectomy and fusion C4 5 C5 6 C6 7 for her cervical stenosis with upper extremity radiculopathy and degenerative disc disease The patient has been making good progress postoperatively. They have completed the prophylactic antibiotics without any signs or symptoms of infection. The patient has been able to advance their diet, and is tolerating diet adequately. The pain was initially controlled with IV medications and is now controlled appropriately with oral medications. The patient has been able to increase their mobilization. The patient has progressed appropriately. I think they are in good stable condition for discharge today. They will be sent home with appropriate prescriptions. I answered their questions to the best of my ability in a language that they can understand and they are agreeable with the plan. she is tolerating her diet quite nicely. I think the swelling in her neck is diffuse and should resolve with some conservative management and observation and ice. They will follow up as directed In approximately 2 weeks or sooner if she is having any problems. Patient Condition at Discharge: Good Plan - Discharge Summary Discharge Rx Participant: Yes New Discharge Prescriptions: New HYDROcodone/APAP 5-325MG [Warren 5-325] 1 tab PO Q6HR PRN 3 Days #12 tab PRN Reason: Pain No Action DULoxetine HCL [Cymbalta] 30 mg PO QAM Cholecalciferol [Vitamin D3 (25 Mcg = 1000 Iu)] 5,000 unit PO Q2D [place]-3 Fatty Acids/Fish Oil [Fish Oil 1,000 mg Softgel] 1 each PO DAILY Ascorbic Acid [Vitamin C] 500 mg PO DAILY Rosuvastatin Calcium 5 mg PO Q2D Cannabidiol (Cbd) [Epidiolex] 1 dose TOPICAL HS PRN PRN Reason: Pain Multivitamin [Multivitamins Adult Gummies] 1 each PO DAILY Vitamin B-12 Injection(Dsoe Un 1 applicate IJ SUTUTH Clopidogrel [Plavix] 75 mg PO DAILY DULoxetine HCL [Cymbalta] 60 mg PO DAILY Omeprazole [PriLOSEC] 20 mg PO HS PRN PRN Reason: Heartburn Thyroid,Pork [[place] Thyroid] 60 mg PO DAILY Vitamin E (Dl,Tocopheryl Acet) [Vitamin E (400 Iu = 180 mg)] 400 unit PO DAILY Zinc 50 mg PO DAILY Turmeric Root Extract [Turmeric] 500 mg PO DAILY Latanoprost/Pf [Latanoprost 0.005% Eye Drop] 1 drop BOTH EYES HS Quercetom 500 mg PO DAILY Acetaminophen [Tylenol Arthritis] 1,300 mg PO DIRECTED PRN PRN Reason: Pain estradioL [estradioL (Once Weekly) 0.075mg Patch] 1 patch TRANSDERM SUWE Magnesium 200 mg PO HS Progesterone, Micronized [Progesterone] 225 mg PO HS Thyroid,Pork [[facility] Thyroid] 90 mg PO DAILY Ubidecarenone [Co Q-10] 100 mg PO DAILY Discharge Medication List Cholecalciferol [Vitamin D3 (25 Mcg = 1000 Iu)] 5,000 unit PO Q2D 03/03/17 [History] DULoxetine HCL [Cymbalta] 30 mg PO QAM 03/03/17 [History] Ascorbic Acid [Vitamin C] 500 mg PO DAILY 09/20/19 [History] Cannabidiol (Cbd) [Epidiolex] 1 dose TOPICAL HS PRN 09/20/19 [History] Multivitamin [Multivitamins Adult Gummies] 1 each PO DAILY 09/20/19 [History] [place]-3 Fatty Acids/Fish Oil [Fish Oil 1,000 mg Softgel] 1 each PO DAILY 09/20/19 [History] Rosuvastatin Calcium 5 mg PO Q2D 09/20/19 [History] Acetaminophen [Tylenol Arthritis] 1,300 mg PO DIRECTED PRN 07/16/21 [History] Clopidogrel [Plavix] 75 mg PO DAILY 07/16/21 [History] DULoxetine HCL [Cymbalta] 60 mg PO DAILY 07/16/21 [History] Magnesium 200 mg PO HS 07/16/21 [History] Omeprazole [PriLOSEC] 20 mg PO HS PRN 07/16/21 [History] Progesterone, Micronized [Progesterone] 225 mg PO HS 07/16/21 [History] Quercetom 500 mg PO DAILY 07/16/21 [History] Thyroid,Pork [[place] Thyroid] 60 mg PO DAILY 07/16/21 [History] Thyroid,Pork [[place] Thyroid] 90 mg PO DAILY 07/16/21 [History] Turmeric Root Extract [Turmeric] 500 mg PO DAILY 07/16/21 [History] Ubidecarenone [Co Q-10] 100 mg PO DAILY 07/16/21 [History] Vitamin B-12 Injection(Dsoe Un 1 applicate IJ SUTUTH 07/16/21 [History] Vitamin E (Dl,Tocopheryl Acet) [Vitamin E (400 Iu = 180 mg)] 400 unit PO DAILY 07/16/21 [History] Zinc 50 mg PO DAILY 07/16/21 [History] estradioL [estradioL (Once Weekly) 0.075mg Patch] 1 patch TRANSDERM SUWE 07/16/21 [History] Latanoprost/Pf [Latanoprost 0.005% Eye Drop] 1 drop BOTH EYES HS 07/18/21 [History] HYDROcodone/APAP 5-325MG [Warren 5-325] 1 tab PO Q6HR PRN 3 Days #12 tab 07/19/21 [Rx] Follow up Appointment(s)/Referral(s): Natan Parrish DO [Doctor of Osteopathic Medicine] - 2 Weeks Activity/Diet/Wound Care/Special Instructions: Keep site clean. May shower with waterproof Tegaderm intact. Do not soak in a tub. After 72 hours postoperatively, patient May remove dressing and then may shower with area uncovered. Leave glue intact and allow it to fray off on its own. May ambulate as tolerated. Avoid heavy or rigorous activity. No repetitive bending twisting or lifting. No overhead work. Discharge Disposition: HOME SELF-CARE
[2021-07-19] MEDS ORDERED: VITAMIN B12 IJ SCH (10:16)
== END 2021-07-19 12:30 | disposition home or self-care (01) ==
LOC: OR 06:20 → 6NMEDSUR 10:41 → 5NMEDONC 11:09 → OR 07-19 12:30
PROVIDERS: ATTEND Orthopaedic Surgery Orthopaedic Surgery of the Spine
DX: M50.121 Cervical disc disorder at C4-C5 level with radiculopathy (principal); M48.02 Spinal stenosis, cervical region; I25.2 Old myocardial infarction; E78.5 Hyperlipidemia, unspecified; M79.7 Fibromyalgia; K21.9 Gastro-esophageal reflux disease without esophagitis; I25.118 Atherosclerotic heart disease of native coronary artery with other forms of angina pectoris; E03.9 Hypothyroidism, unspecified; Z88.8 Allergy status to other drugs, medicaments and biological substances; Z95.5 Presence of coronary angioplasty implant and graft; Z86.73 Personal history of transient ischemic attack (TIA), and cerebral infarction without residual deficits; Z97.2 Presence of dental prosthetic device (complete) (partial); Z79.02 Long term (current) use of antithrombotics/antiplatelets; Z79.890 Hormone replacement therapy; Z79.899 Other long term (current) drug therapy; Z82.3 Family history of stroke; Z81.1 Family history of alcohol abuse and dependence; Z83.3 Family history of diabetes mellitus; Z82.49 Family history of ischemic heart disease and other diseases of the circulatory system; Z98.890 Other specified postprocedural states; Z90.49 Acquired absence of other specified parts of digestive tract; Z90.722 Acquired absence of ovaries, bilateral; Z98.49 Cataract extraction status, unspecified eye
CPT/HCPCS: 72020; 22551; 22552 ×2; 20931; C1713 ×2; C1762 ×2; J2250; J1100 ×2; J2710; J0690 ×3; J2405; J3010; J2370; J0330; J2704; J1170; J2001